=== PATIENT | male | born 1980 | race Hispanic/Latino ===

== ENCOUNTER 2025-01-17 16:13 | Emergency (ER) | payer SELFPAY ==
[~2025-01-17] VITALS: Ht 188 cm; Wt 124.7 kg
[2025-01-17] MEDS ORDERED: MEDROL4 M2 PO (18:45)
[2025-01-17] MEDS ORDERED: TRIAMCINOLONE A15 G1 TOP (18:45)
[2025-01-17 19:00] VITALS: TEMP 98.7
[2025-01-17 19:02] VITALS: PULSE 74; RESP 16
[2025-01-17 19:37] VITALS: BP 128/82; PULSE 71; RESP 15; TEMP 98.7; O2SAT 100
== END 2025-01-17 19:30 | disposition home or self-care (01) ==
LOC: ER 18:48
DX: L25.9 Unspecified contact dermatitis, unspecified cause (principal)
CPT/HCPCS: 99282